=== PATIENT | female | born 2000 | race Caucasian/White ===

== ENCOUNTER 2022-06-26 10:50 | Emergency (ER) | payer MEDICAID, OTHER ==
[~2022-06-26] VITALS: Ht 170.2 cm; Wt 66.0 kg
[2022-06-26 11:49] LABS: BASOPHILS % 0.3 % (0.0-2.0); HEMATOCRIT. 42.7 % (36.0-48.0); HEMOGLOBIN. 14.8 g/dL (12.0-16.0); LYMPHOCYTES % 18.2 % (20.0-50.0); MEAN CORPUSCULAR VOLUME 86.8 fL (81.0-99.0); MONOCYTES % 7.7 % (2.0-8.0); NEUTROPHILS % 72.8 % (40.0-76.0); PLATELET 256 x1000/uL (130-400); RED BLOOD CELL COUNT 4.92 mill/uL (4.2-5.4); RED CELL DISTRIBUTION WIDTH 13.4 % (11.6-14.6)
[2022-06-26 11:59] LABS: CHLORIDE 105 mEq/L (98-107)
[2022-06-26 12:20] LABS: B-HCG QUANTITATIVE 18738 mIU/mL (<3)
[2022-06-26 12:36] LABS: CLARITY URINE CLEAR (CLEAR); COLOR URINE YELLOW (YELLOW); KETONES URINE TRACE (NEGATIVE); LEUKOCYTE ESTERASE URINE TRACE (NEGATIVE); NITRITE URINE NEGATIVE (NEGATIVE); OCCULT BLOOD URINE NEGATIVE (NEGATIVE); PH URINE 6.5 (4.5-8.0); PROTEIN URINE NEGATIVE (NEGATIVE); SPECIFIC GRAVITY URINE 1.024 (1.005-1.030)
[2022-06-26] MEDS ORDERED: CEFP200T13 MT (13:22)
[2022-06-26] MEDS ORDERED: TOPUD PO (13:22)
[2022-06-26 13:43] VITALS: BP 126/64
== END 2022-06-26 13:45 | disposition home or self-care (01) ==
LOC: ER 11:37 → EDBD 11:37 → ER 13:45
DX: O23.01 Infections of kidney in pregnancy, first trimester (principal); O23.41 Unspecified infection of urinary tract in pregnancy, first trimester; O26.891 Other specified pregnancy related conditions, first trimester; M54.6 Pain in thoracic spine; Z3A.01 Less than 8 weeks gestation of pregnancy
CPT/HCPCS: 36415; 76801; 80053; 81003; 81025; 84702; 85025; 86850; 86900; 99284

== ENCOUNTER 2022-12-19 04:42 | Emergency (ER) | payer MEDICAID, OTHER ==
[~2022-12-19] VITALS: Ht 170.2 cm; Wt 59.0 kg
[~2022-12-19 04:42] MED LIST: CEFP200T13 MT; TOPUD PO
[2022-12-19 04:51] VITALS: O2SAT 99
[2022-12-19] MEDS ORDERED: SODIUM CHLORIDE 0.9% 1,000 ML IV ONE (05:45)
[2022-12-19 06:33] VITALS: BP 107/72; PULSE 83; RESP 20; TEMP 98.5
== END 2022-12-19 06:56 | disposition short-term general hospital (02) ==
LOC: ER 04:42
DX: O26.893 Other specified pregnancy related conditions, third trimester (principal); R10.9 Unspecified abdominal pain; Z3A.39 39 weeks gestation of pregnancy
CPT/HCPCS: 99285; 96360; J7030